=== PATIENT | male | born 1955 | race Caucasian/White ===

== ENCOUNTER 2020-10-31 01:09 | Day surgery (SDC) | payer MEDICARE, SELFPAY ==
[2020-10-19 15:47] VITALS: BMI 26.4
--- NOTE | 2020-10-31 09:48 | WPDGICN ---
Assessment and Plan Assessment and plan (1) History of colon polyps: Code(s): Z86.010 - Personal history of colonic polyps Status: Acute Assessment and Plan: Patient has a history of colon polyps at age 50. He presents today for screening colonoscopy. GI Consult Note Consult date/time: 10/31/20 09:48 HPI: Daniel Solo is a 65 year old male Presents for screening colonoscopy. Patient reports that his current weight appetite bowel movements are normal. He denies abdominal pain. He has had no bleeding. Patient reports having had a colon polyp on previous exam at age 50. His last colonoscopy was 5 years ago. He presents today for screening colonoscopy. Review of Systems Review of Systems: All systems reviewed & are unremarkable except as noted in HPI and below PMFSH Social History Social History Smoking status: Never smoker Alcohol intake: current Alcohol use details: rarely Living arrangements: with family Spiritual care concerns: No Meds Home Medications and Allergies Home Medications Medication Instructions Recorded Confirmed Type Juvenon 3 cap PO DAILY 10/19/20 10/19/20 History aspirin 81 mg PO DAILY 10/19/20 10/19/20 History Allergies Allergy/AdvReac Type Severity Reaction Status Date / Time No Known Allergies Allergy Unverified 10/19/20 15:45 Exam Narrative: Physical exam reveals patient be alert. Vital signs stable. HEENT exam is unremarkable. Patient is anicteric. Lungs are clear to auscultation and percussion. Heart is without murmur or extra sounds. Abdominal exam bowel sounds are present soft nontender with no organomegaly. Digital external rectal exam is normal.
[2020-10-31 09:51] VITALS: BP 132/92; PULSE 83; RESP 16; TEMP 36.1; O2SAT 100; BMI 25.1
[2020-10-31] MEDS: LACTATED RINGERS 1,000 ML 150 ML IV CONT (10:03)
--- NOTE | 2020-10-31 10:34 | WPDANESEPPF ---
Anes - Initial Pre Proc Eval Procedure: Operation Date: 10/31/20 11:00 Proposed Procedures p Screening Colonoscopy - Geovani Randall MD Date/Time: 10/31/20 10:34 Surgeon: Geovani Randall MD Pre Op Diagnosis: hx of colon polyps Patient Data Age: 65 Gender: M Height: 1.85 m Weight: 86.3 kg Last Vital Signs Temp 97 F L 10/31/20 09:51 Pulse 83 10/31/20 09:51 Resp 16 10/31/20 09:51 BP 132/92 H 10/31/20 09:51 Pulse Ox 100 10/31/20 09:51 Allergies Allergy/AdvReac Type Severity Reaction Status Date / Time No Known Allergies Allergy Unverified 10/31/20 09:50 Home Medications Medication Instructions Recorded Confirmed Type Juvenon 3 cap PO DAILY 10/19/20 10/31/20 History aspirin 81 mg PO DAILY 10/19/20 10/31/20 History Patient hx anesthesia problems: none Family hx anesthesia problems: none [facility] Past Medical History Medical History (Updated 10/31/20 @ 10:35 by Jerome Knapp MD) Overweight (BMI 25.0-29.9) Social History Social History Smoking status: Never smoker Alcohol intake: current Alcohol use details: rarely Living arrangements: with family Spiritual care concerns: No Anes - Eval Final PreProcedure Day of Procedure 10/31/20 10:34 Patient weight: overweight Heart: regular rate and rhythm Lungs: clear to auscultation Airway: Mallampati scale class II Neurological: alert and oriented Last oral intake: >/= 8 hours ASA classification: II Emergent: no Anesthetic plan: proceed Anesthesia type and monitoring: general GIVS and standard monitoring Informed Consent: The patient's anesthetic plan and its attendant risks and benefits were discussed with the patient/family/POA. Questions were solicited and answers provided to the satisfaction of the patient/family/POA.
[2020-10-31 10:41] VITALS: BP 92/62; PULSE 78; RESP 17; O2SAT 97
--- NOTE | 2020-10-31 10:41 | SUR.OPER ---
sigmoid colon polyp fulgarated, as reported by Dr. Randall, no specimen sent
[2020-10-31 10:51] VITALS: BP 111/76; PULSE 72; RESP 14; O2SAT 97
[2020-10-31 11:01] VITALS: BP 113/82; PULSE 76; RESP 17; O2SAT 98
== END 2020-10-31 11:18 | disposition home or self-care (01) ==
PROVIDERS: PCP Family Medicine; Visit Provider Internal Medicine Gastroenterology
PROC: 0DJD8ZZ Inspection of Lower Intestinal Tract, Via Natural or Artificial Opening Endoscopic (ICD-10-PCS; CPT 45378; principal; 2020-10-31 11:00)
DX: Z12.11 Encounter for screening for malignant neoplasm of colon (principal); K63.5 Polyp of colon; K64.8 Other hemorrhoids; K57.30 Diverticulosis of large intestine without perforation or abscess without bleeding; Z79.82 Long term (current) use of aspirin
CPT/HCPCS: 45385; J7120